=== PATIENT | female | born 1980 | race Asian ===

== ENCOUNTER 2024-04-13 00:59 | Emergency (ER) | payer MEDICAID ==
[~2024-04-13] VITALS: Ht 152.4 cm; Wt 54.5 kg
[2024-04-13 01:03] VITALS: BP 124/49; PULSE 81; RESP 16; TEMP 97.9; O2SAT 98
[2024-04-13 01:53] LABS: BASOPHILS % (AUTO) 0.2 % (0.0-2.0); EOSINOPHILS % (AUTO) 0.8 % (1.0-6.0); HEMATOCRIT 38.1 % (36-46); HEMOGLOBIN 12.5 g/dL (12.0-16.0); LYMPHOCYTES % (AUTO) 20.5 % (22.0-44.0); MEAN CORPUSCULAR HEMOGLOBIN 25.8 pg (26.0-34.0); MEAN CORPUSCULAR HGB CONC 32.7 G/dL (31.0-37.0); MEAN CORPUSCULAR VOLUME 79 fL (80-100); MONOCYTES # (AUTO) 0.7 K/uL (0.1-1.0); MONOCYTES % (AUTO) 6.6 % (2.0-9.0); NEUTROPHILS # (AUTO) 7.1 K/uL (1.8-7.7); NEUTROPHILS % (AUTO) 71.9 % (40.0-70.0); PLATELET COUNT (AUTO) 208 K/uL (150-450); RED BLOOD CELL COUNT(AUTO) 4.83 MIL/uL (4.00-5.20); RED CELL DISTRIBUTION WIDTH 14.7 % (11.5-14.5); WHITE BLOOD COUNT (AUTO) 9.9 K/uL (4.5-11.0)
[2024-04-13 02:02] LABS: ANION GAP 11 mmol/L (8-16); CALCIUM, TOTAL 8.3 mg/dL (8.8-10.5); CARBON DIOXIDE 25 mmol/L (22-29); CHLORIDE 103 mmol/L (98-107); CREATININE 0.72 mg/dL (0.60-1.30); GLOMERULAR FILTR. RATE CALC > 60 mL/min (>60); GLUCOSE,RANDOM 183 mg/dL (70-110); POTASSIUM 3.1 mmol/L (3.5-5.1); SODIUM SERUM 139 mmol/L (136-145); UREA NITROGEN, BLOOD 9 mg/dL (7-18)
[2024-04-13 02:08] LABS: ALCOHOL, BLOOD (SERUM) < 3 mg/dL (0-10)
[2024-04-13 02:09] LABS: ACETAMINOPHEN < 2 mcg/mL (10-30)
[2024-04-13 02:14] LABS: SALICYLATE 0.4 mg/dL (2.8-20.0)
[2024-04-13] MEDS: SODIUM CHLORIDE 0.9% 1,000 ML IV ONE (02:35)
[2024-04-13] MEDS: ONDANSETRON HCL 4 MG/2 ML VIAL IVP ONE (03:25)
[2024-04-13] MEDS: MECLIZINE HCL 25 MG TABLET PO ONE (05:15)
[2024-04-13] MEDS ORDERED: MECL-302 PO (05:27)
[2024-04-13 05:55] LABS: COVID AG,FIA SOURCE NASAL SWAB
[2024-04-13 06:16] LABS: INFLUENZA TYPE A NEGATIVE FOR TYPE A (NEGATIVE); INFLUENZA TYPE B NEGATIVE FOR TYPE B (NEGATIVE)
[2024-04-13 06:17] LABS: SARS-COV2 (COVID) ANTIGEN,FIA Negative (Negative)
== END 2024-04-13 06:17 | disposition home or self-care (01) ==
LOC: EMS 00:59
DX: R42 Dizziness and giddiness (principal); R11.2 Nausea with vomiting, unspecified; Z20.822 Contact with and (suspected) exposure to COVID-19
CPT/HCPCS: 99284; 96374; 96361; 87426; 80048; 84703; 85025; 87804; 36415; 93005; G0480; J2405; J7030; G0481